=== PATIENT | female | born 1955 | race Caucasian/White ===

== ENCOUNTER → 2018-11-18 | Outpatient (CLI) | payer OTHER ==
[~2018-11-18] MED LIST: NAPR220
[2018-11-18 19:35] LABS: BASOPHILS ABSOLUTE AUTO 0.04 K/mm3 (0.00-0.23); BASOPHILS PERCENT AUTO 1 % (0-2); EOSINOPHILS PERCENT AUTO 0 % (0-6); Hematocrit 41.7 % (33.0-51.0); Hemoglobin 14.3 g/dL (11.5-16.0); IMMATURE GRAN ABSOLUTE AUTO 0.02 K/mm3 (0.00-0.10); IMMATURE GRAN PERCENT AUTO 0 % (0-1); LYMPHOCYTES ABSOLUTE AUTO 1.18 K/mm3 (0.84-5.20); LYMPHOCYTES PERCENT AUTO 15 % (21-46); MONOCYTES ABSOLUTE AUTO 0.53 K/mm3 (0.16-1.47); MONOCYTES PERCENT AUTO 7 % (4-13); Mean Corpuscular HGB 29.7 pg (26.0-34.0); Mean Corpuscular HGB Conc 34.3 g/dL (31.5-36.5); Mean Corpuscular Volume 87 fL (80-100); Mean Platelet Volume 10.2 fL (9.1-12.4); NEUTROPHILS ABSOLUTE AUTO 6.08 K/mm3 (1.96-9.15); NEUTROPHILS PERCENT AUTO 77 % (41-73); Platelet Count 312 K/mm3 (150-400); RDW Coefficient Variation 12.1 % (11.7-14.2); RDW Standard Deviation 38.3 fL (35.1-46.3); Red Blood Cell Count 4.82 M/mm3 (3.80-5.20); White Blood Cell Count 7.85 K/mm3 (4.00-11.30)
[2018-11-18 19:46] LABS: Alanine Aminotransfer (ALT/SGP 93 U/L (12-78); Albumin, Blood 3.9 g/dL (3.4-5.0); Alk Phos 118 U/L (50-136); Anion Gap 9 mmol/L (6-16); Aspartate Aminotrans (AST/SGOT 60 U/L (12-37); Bilirubin, Total 1.2 mg/dL (0.1-1.0); Blood Urea Nitrogen 12 mg/dL (8-24); CO2, Blood 24 mmol/L (21-32); Calcium, Blood 9.8 mg/dL (8.5-10.1); Chloride, Blood 99 mmol/L (98-108); Creatinine, Blood 0.55 mg/dL (0.40-1.00); Globulin, Blood 3.9 g/dL (2.2-4.0); Glomerular Filtration Rate >60 (60-); Glucose, Blood 152 mg/dL (70-99); Potassium, Blood 3.4 mmol/L (3.5-5.5); Sodium, Blood 132 mmol/L (136-145); Total Protein, Blood 7.8 g/dL (6.4-8.2)
== END ==
LOC: LAB SHORT 18:50 → LAB 18:50
PROVIDERS: Family Medicine
DX: R10.84 Generalized abdominal pain (principal); R11.10 Vomiting, unspecified
CPT/HCPCS: 80053; 85025

== ENCOUNTER → 2019-05-16 | Outpatient (CLI) | payer OTHER ==
[2019-05-21 15:06] LABS: HPV 16 Negative (Negative); HPV 18 Negative (Negative); HPV OTHER HR TYPES Negative (Negative)
== END | disposition home or self-care (01) ==
LOC: LAB SHORT 17:00 → LAB 17:00
PROVIDERS: Physician Assistant
DX: Z12.4 Encounter for screening for malignant neoplasm of cervix (principal)
CPT/HCPCS: 87624; G0145

== ENCOUNTER → 2019-07-05 | Outpatient (CLI) | payer OTHER ==
[2019-07-09 13:07] LABS: HPV 16 Negative (Negative); HPV 18 Negative (Negative); HPV OTHER HR TYPES Negative (Negative)
== END | disposition home or self-care (01) ==
LOC: LAB SHORT 16:20 → LAB 16:20
PROVIDERS: Physician Assistant
DX: Z01.419 Encounter for gynecological examination (general) (routine) without abnormal findings (principal)
CPT/HCPCS: 87624; G0145

== ENCOUNTER → 2020-07-30 | Outpatient (CLI) | payer OTHER ==
[2020-08-01 15:42] LABS: CORONAVIRUS (COVID19) CSH-NRL Negative (Negative)
== END ==
LOC: LAB SHORT 09:11
PROVIDERS: Chiropractor
DX: Z20.828 Contact with and (suspected) exposure to other viral communicable diseases (principal)
CPT/HCPCS: U0003

== ENCOUNTER → 2020-10-22 | Outpatient (CLI) | payer OTHER ==
[~2020-10-22] MED LIST changes: +KEYTRUDA100 MG/41 IV; +L-Lysine500 M1 PO; +MULVITA PO; +NASACORT10.8 ML; +OMEP20ER PO; +ONDA4ODT; +Q-Tussin100 MG/5 M PO
== END | disposition home or self-care (01) ==
LOC: LAB SHORT 07:00 → LAB 07:00
DX: K21.9 Gastro-esophageal reflux disease without esophagitis (principal)
CPT/HCPCS: 87338

== ENCOUNTER 2020-12-08 05:55 | Day surgery (SDC) | payer OTHER ==
[~2020-12-08] VITALS: Ht 165.1 cm; Wt 72.9 kg
[~2020-12-08 05:55] MED LIST changes: -KEYTRUDA100 MG/41 IV; -L-Lysine500 M1 PO; -MULVITA PO; -NASACORT10.8 ML; -OMEP20ER PO; -ONDA4ODT; -Q-Tussin100 MG/5 M PO
[2020-12-08] MEDS ORDERED: L-Lysine500 M1 PO (06:50)
[2020-12-08] MEDS ORDERED: Q-Tussin100 MG/5 M PO (06:50)
[2020-12-08] MEDS ORDERED: MULVITA PO (06:51)
[2020-12-08] MEDS ORDERED: ONDA4ODT (06:52)
[2020-12-08] MEDS ORDERED: OMEP20ER PO (06:52)
[2020-12-08] MEDS ORDERED: KEYTRUDA100 MG/41 IV (06:53)
[2020-12-08] MEDS ORDERED: NASACORT10.8 ML (06:53)
--- NOTE | 2020-12-08 07:15 | NUR ---
Ambulatory in Day Surgery History, Chart, Medications and Allergies reviewed before start of procedure.Lungs clear T/O to Auscultation. Patient confirms NPO status and agrees with scheduled surgery. Pre-Op teaching done. Pt verbalizes understanding.
--- NOTE | 2020-12-08 07:25 | NUR ---
FLEETS ENEMA GIVEN, CLEAR WITH MUCOUS. PT TOLERATED WELL. NO BLEEDING NOTED AT THIS TIME.
--- NOTE | 2020-12-08 07:38 | NUR ---
12/08/20 0738 Bryson Ramos History, Chart, Medications and Allergies reviewed before start of procedure.MONITOR INTACT WITH CONTINUOUS PULSE OXIMETRY AND INTERMITTENT BP.3-LEAD EKG REVIEWED WITH PHYSICIAN PRIOR TO START OF PROCEDURE.See Anesthesia record.
--- NOTE | 2020-12-08 10:43 | NUR ---
DR DICKERSON AT BEDSIDE. DISCUSSED PT'S STATUS. NEW ORDER FOR LR 250 CC BOLUS. BP NOW 89/50. PT 90-91% ON RA. CONT TO MONITOR.
--- NOTE | 2020-12-08 10:51 | NUR ---
DR BAI HERE TO SEE PT, DISCUSSED PT'S STATUS, VS.
--- NOTE | 2020-12-08 11:06 | NUR ---
RT RECENTLY HERE TO SEE PT, INSTRUCTED AND ENCOURAGED PT ON I/S AND FLUTTER VALVE. PT BIOX 94% NOW. DISCUSSED PT'S STATUS WITH PT'S FRIEND PER PT'S REQ.
--- NOTE | 2020-12-08 11:45 | NUR ---
Patient up to Ambulate independently. Gait steady. Discharge instructions reviewed with patient. Patient verbalizes understanding. Copy given to patient to take home. Patient States Post-Procedure ride home has been arranged. Discharged via wheelchair to private car for ride home.
== END 2020-12-08 11:53 | disposition home or self-care (01) ==
LOC: ORSCMMR 05:55 → ORD 07:30 → ORSCMMR 07:30
PROVIDERS: Surgery
PROC: 0DBQ8ZX Excision of Anus, Via Natural or Artificial Opening Endoscopic, Diagnostic (ICD-10-PCS; principal; 2020-12-08 07:30)
DX: C21.0 Malignant neoplasm of anus, unspecified (principal); E78.5 Hyperlipidemia, unspecified; K21.9 Gastro-esophageal reflux disease without esophagitis; E03.9 Hypothyroidism, unspecified; Z79.899 Other long term (current) drug therapy
CPT/HCPCS: 88305; 94667; A9270; J1100; J1885; J2250; J2370; J2405; J2704; J3010; J7120